=== PATIENT | female | born 1940 | race Two or more races ===

== ENCOUNTER 2022-04-28 00:23 | Observation (INO) | payer MEDICARE ==
[~2022-04-28] VITALS: Ht 175.3 cm; Wt 70.0 kg
[2022-04-28 04:00] LABS: BASOPHILS ABSOLUTE AUTO 0.02 K/mm3 (0.00-0.23); BASOPHILS PERCENT AUTO 0 % (0-2); EOSINOPHILS PERCENT AUTO 0 % (0-6); Hematocrit 33.2 % (33.0-51.0); Hemoglobin 11.6 g/dL (11.5-16.0); IMMATURE GRAN ABSOLUTE AUTO 0.06 K/mm3 (0.00-0.10); IMMATURE GRAN PERCENT AUTO 1 % (0-1); LYMPHOCYTES ABSOLUTE AUTO 0.75 K/mm3 (0.84-5.20); LYMPHOCYTES PERCENT AUTO 7 % (21-46); MONOCYTES PERCENT AUTO 1 % (4-13); Mean Corpuscular HGB 30.4 pg (26.0-34.0); Mean Corpuscular HGB Conc 34.9 g/dL (31.5-36.5); Mean Corpuscular Volume 87 fL (80-100); Mean Platelet Volume 11.9 fL (9.1-12.4); NEUTROPHILS ABSOLUTE AUTO 9.81 K/mm3 (1.96-9.15); NEUTROPHILS PERCENT AUTO 91 % (41-73); NRBC ABSOLUTE 0.05 K/mm3 (0.00-0.02); NRBC Auto 0.5 /100 WBC (0.0-0.2); Platelet Count 212 K/mm3 (150-400); RDW Coefficient Variation 13.4 % (11.7-14.2); RDW Standard Deviation 41.9 fL (35.1-46.3); Red Blood Cell Count 3.81 M/mm3 (3.80-5.20); White Blood Cell Count 10.74 K/mm3 (4.00-11.30)
[2022-04-28] MEDS ORDERED: AMLO5 PO (04:04)
[2022-04-28] MEDS ORDERED: PANT40 PO (04:04)
[2022-04-28] MEDS ORDERED: ASPI81CH PO (04:05)
[2022-04-28] MEDS ORDERED: CARV6.25 PO (04:05)
[2022-04-28] MEDS ORDERED: CLOP75 PO (04:06)
[2022-04-28] MEDS ORDERED: CARBLEV25 SL (04:07)
[2022-04-28] MEDS ORDERED: DULO30 PO (04:08)
[2022-04-28] MEDS ORDERED: ONDA4 PO (04:09)
[2022-04-28] MEDS ORDERED: LEVE500 PO (04:09)
[2022-04-28] MEDS ORDERED: FAMO20 PO (04:10)
[2022-04-28] MEDS ORDERED: Alphagan P5 ML BOTHEYES (04:11)
[2022-04-28] MEDS ORDERED: OXYC5 PO (04:12)
[2022-04-28] MEDS ORDERED: LORA.5 PO (04:13)
[2022-04-28] MEDS ORDERED: ATOR40TA PO (04:14)
[2022-04-28] MEDS ORDERED: LATA.005SO BOTHEYES (04:15)
[2022-04-28] MEDS ORDERED: VITAMIN D310 MC4 PO (04:16)
[2022-04-28 04:22] LABS: Albumin, Blood 3.3 g/dL (3.4-5.0); Albumin/Globulin Ratio 0.9 (0.8-1.8); Bilirubin, Total 1.1 mg/dL (0.1-1.0); Bun/Creatinine Ratio 33.6 (12.0-20.0); Calcium, Blood 8.8 mg/dL (8.5-10.1); Creatinine, Blood 0.42 mg/dL (0.40-1.00); Globulin, Blood 3.8 g/dL (2.2-4.0); Potassium, Blood 4.4 mmol/L (3.5-5.5); Total Protein, Blood 7.1 g/dL (6.4-8.2)
[2022-04-29 04:25] LABS: BASOPHILS ABSOLUTE AUTO 0.02 K/mm3 (0.00-0.23); BASOPHILS PERCENT AUTO 0 % (0-2); EOSINOPHILS ABSOLUTE AUTO 0.02 K/mm3 (0.00-0.68); EOSINOPHILS PERCENT AUTO 0 % (0-6); IMMATURE GRAN ABSOLUTE AUTO 0.03 K/mm3 (0.00-0.10); IMMATURE GRAN PERCENT AUTO 0 % (0-1); LYMPHOCYTES ABSOLUTE AUTO 2.64 K/mm3 (0.84-5.20); LYMPHOCYTES PERCENT AUTO 25 % (21-46); MONOCYTES ABSOLUTE AUTO 1.25 K/mm3 (0.16-1.47); MONOCYTES PERCENT AUTO 12 % (4-13); Mean Corpuscular HGB 30.6 pg (26.0-34.0); Mean Corpuscular HGB Conc 33.3 g/dL (31.5-36.5); Mean Corpuscular Volume 92 fL (80-100); Mean Platelet Volume 12.8 fL (9.1-12.4); NEUTROPHILS PERCENT AUTO 63 % (41-73); NRBC ABSOLUTE 0.02 K/mm3 (0.00-0.02); NRBC Auto 0.2 /100 WBC (0.0-0.2); Platelet Count 177 K/mm3 (150-400); RDW Standard Deviation 45.9 fL (35.1-46.3); Red Blood Cell Count 3.27 M/mm3 (3.80-5.20); White Blood Cell Count 10.66 K/mm3 (4.00-11.30)
[2022-04-29 04:47] LABS: Bun/Creatinine Ratio 34.6 (12.0-20.0); Calcium, Blood 8.5 mg/dL (8.5-10.1); Creatinine, Blood 0.49 mg/dL (0.40-1.00); Potassium, Blood 3.6 mmol/L (3.5-5.5)
[2022-04-29] MEDS ORDERED: CHOLESTYRAMI239.4 G1 PO (11:26)
== END 2022-04-29 14:00 | disposition home or self-care (01) ==
LOC: PCU 00:24 → UNDOADMOB 02:22 → PCU 02:22
PROVIDERS: Internal Medicine; Student in an Organized Health Care Education/Training Program; ADMIT Internal Medicine
DX: E87.1 Hypo-osmolality and hyponatremia (principal); G92.8 Other toxic encephalopathy; I10 Essential (primary) hypertension; R41.82 Altered mental status, unspecified; G20 Parkinson's disease; I34.0 Nonrheumatic mitral (valve) insufficiency; H40.9 Unspecified glaucoma; F32.9 Major depressive disorder, single episode, unspecified; Z87.891 Personal history of nicotine dependence
CPT/HCPCS: 36415; 80048; 80053; 85025; 94760; 94762; 96374; 97162; 97166; 97530; A9270; G0378; J1650; J2405; J7030; J7120